=== PATIENT | female | born 1990 | race Asian ===

== ENCOUNTER → 2018-01-10 | Outpatient (CLI) | payer OTHER | END | disposition home or self-care (01) | LOC: LABPV 07:46 | PROVIDERS: ATTEND Family Medicine | DX: Z02.89 Encounter for other administrative examinations (principal) | CPT/HCPCS: 86480; 86592; 87491; 87591 ==

== ENCOUNTER → 2018-01-20 | Outpatient (CLI) | payer OTHER ==
[2018-01-21 07:06] LABS: RUBEOLA (MEASLES) IGG 41.8 AU/mL (Immune >29.9)
== END | disposition home or self-care (01) ==
LOC: LABPV 13:36
PROVIDERS: ATTEND Family Medicine
DX: Z02.89 Encounter for other administrative examinations (principal)
CPT/HCPCS: 86708; 86735; 86762; 86765; 86787